=== PATIENT | female | born 1935 | race Caucasian/White ===

== ENCOUNTER 2020-07-31 13:56 | Observation (INO) | payer MEDICARE, OTHER ==
[2020-07-31 14:56] LABS: #Basophils 0.1 thou/uL (0.0-0.2); #Lymphocytes 1.1 thou/uL (1.20-3.40); #Neutrophils 11.4 thou/uL (1.40-6.50); %Basophils 0.7 % (0.0-1.0); %Eosinophils 0.2 % (0.0-10.0); %Lymphocytes 7.8 % (21.0-51.0); %Monocytes 7.2 % (0.0-10.0); %Neutrophils 84.1 % (42.0-75.0); Hemoglobin 14.1 g/dL (12.0-16.0); Mean Corpuscular HGB CONC 31.1 g/dL (32.0-36.0); Mean Corpuscular Hemoglobin 26.8 pg (27.0-31.0); Platelet Count 229 thou/uL (130-400); RBC Distribution Width 13.7 % (11.5-14.5); Red Blood Cell (RBC) Count 5.28 mill/uL (4.20-5.40); White Blood Cell (WBC) Count 13.6 thou/uL (4.8-10.8)
[2020-07-31 15:13] LABS: ALT (SGPT) 17 U/L (8-55); AST (SGOT) 19 U/L (5-34); Albumin 3.6 g/dL (3.4-4.8); Alkaline Phosphatase 90 U/L (40-110); Anion Gap 15 mmol/L (10-20); BUN (Urea Nitrogen) 12 mg/dL (9.8-20.1); Bilirubin, Total 0.5 mg/dL (0.2-1.2); Calc. Creatinine Clearance 0 mL/min (70-130); Calcium 9.2 mg/dL (7.8-10.44); Carbon Dioxide 25 mmol/L (23-31); Chloride 97 mmol/L (98-107); Globulin 2.2 g/dL (2.4-3.5); Glucose 190 mg/dL (83-110); Lipase 42 U/L (8-78); Protein, Total 5.8 g/dL (5.8-8.1); Sodium 134 mmol/L (136-145)
[2020-07-31 15:15] LABS: Potassium 2.9 mmol/L (3.5-5.1)
[2020-07-31] MEDS ORDERED: Iopamidol 370 76% 100 ML VIAL ONE (15:36)
[2020-07-31] MEDS ORDERED: Potassium Chloride 20 MEQ TAB ONE (15:59)
[2020-07-31 16:49] LABS: Bilirubin Negative (Negative); Blood, Urine Small (Negative); Clarity Clear (Clear); Glucose, Urine (Dipstick) Negative (Negative); Ketone, Urine Negative (Negative); Leukocyte Trace (Negative); Nitrite Negative (Negative); Protein, Urine (Dipstick) Negative (Neg-Trace); Specific Gravity, Urine 1.015 (1.005-1.030); Urobilinogen 0.2 mg/dL (Less than 2)
[2020-07-31 16:55] LABS: Bacteria/HPF 2+ HPF (None Seen); RBC/HPF 0-3 HPF (0-3); Renal Epithelial 0-3 HPF (None Seen); WBC/HPF 0-3 HPF (0-3)
[2020-07-31] MEDS ORDERED: Cefepime 2 GM VIAL ONE ×2 (18:10→18:13)
[2020-07-31] MEDS ORDERED: metroNIDAZOLE 500 MG/100 ML BAG ONE (18:10)
[2020-07-31] MEDS ORDERED: Cefepime 1 GM VIAL ONE (18:13)
[2020-07-31] MEDS ORDERED: Sodium Chloride 0.9% 100 ML ONE (18:14)
[2020-07-31 19:46] VITALS: BMI 27.3
[2020-07-31] MEDS ORDERED: Acetaminophen 325 MG TAB PO PRN (20:27)
[2020-07-31] MEDS ORDERED: Ondansetron ODT 4 MG TAB PO PRN (20:27)
[2020-07-31] MEDS ORDERED: Montelukast Sodium 10 mg Tablet PO SCH (21:00)
[2020-07-31] MEDS ORDERED: Enoxaparin Sodium 40 MG/0.4 ML SYRINGE SC SCH (21:00)
[2020-07-31] MEDS: metroNIDAZOLE 500 MG in Premix Bag 1 BAG IVPB SCH (23:12)
[2020-08-01 05:49] LABS: ALT (SGPT) 14 U/L (8-55); AST (SGOT) 15 U/L (5-34); Albumin 2.8 g/dL (3.4-4.8); Alkaline Phosphatase 75 U/L (40-110); Anion Gap 11 mmol/L (10-20); BUN (Urea Nitrogen) 11 mg/dL (9.8-20.1); Bilirubin, Total 0.4 mg/dL (0.2-1.2); Calc. Creatinine Clearance 61 mL/min (70-130); Calcium 8.5 mg/dL (7.8-10.44); Carbon Dioxide 24 mmol/L (23-31); Chloride 104 mmol/L (98-107); Globulin 1.6 g/dL (2.4-3.5); Glucose 98 mg/dL (83-110); Potassium 3.1 mmol/L (3.5-5.1); Protein, Total 4.4 g/dL (5.8-8.1); Sodium 136 mmol/L (136-145)
[2020-08-01] MEDS ORDERED: Levothyroxine Sodium 100 MCG TAB PO SCH (06:00)
[2020-08-01] MEDS: metroNIDAZOLE 500 MG in Premix Bag 1 BAG IVPB SCH (06:19)
[2020-08-01 06:48] LABS: SARS-CoV-2 NAA Rapid Test DETECTED (NotDetected)
[2020-08-01] MEDS ORDERED: Dexamethasone 4 MG TAB PO SCH (08:00)
[2020-08-01] MEDS ORDERED: Lisinopril 20 MG TAB PO SCH (09:00)
[2020-08-01] MEDS ORDERED: Enoxaparin Sodium 40 MG/0.4 ML SYRINGE SC SCH (09:00)
[2020-08-01] MEDS ORDERED: Potassium Chloride 20 MEQ TAB PO SCH (09:00)
[2020-08-01] MEDS ORDERED: Meloxicam 7.5 MG TAB PO SCH (09:00)
[2020-08-01] MEDS ORDERED: Amlodipine 10 MG TAB PO SCH (09:00)
[2020-08-01 12:37] VITALS: BP 139/61; TEMP 97.7
== END 2020-08-01 13:36 | disposition home or self-care (01) ==
LOC: BURERS 13:56 → INTOOBSV 17:15 → BURMED 17:15
PROVIDERS: ADMIT Family Medicine; ATTEND Family Medicine
DX: U07.1 COVID-19 (principal); I49.9 Cardiac arrhythmia, unspecified; E87.6 Hypokalemia; I10 Essential (primary) hypertension; E03.9 Hypothyroidism, unspecified; J45.20 Mild intermittent asthma, uncomplicated; M19.90 Unspecified osteoarthritis, unspecified site; Z79.899 Other long term (current) drug therapy; Z88.0 Allergy status to penicillin; Z88.1 Allergy status to other antibiotic agents; Z66 Do not resuscitate
CPT/HCPCS: 0240U; 36415; 51701; 71046; 74177; 80053; 81003; 81015; 83605; 83690; 84443; 85025; 87040; 94760; 96365; 96372; 96374; G0378; J0692; J1650; J3490; J8540; Q9967

== ENCOUNTER 2020-08-11 18:28 | Emergency (ER) | payer MEDICARE ==
[~2020-08-11 18:28] MED LIST: Iopamidol 370 76% 100 ML VIAL ONE
[2020-08-11 20:21] LABS: ALT (SGPT) 32 U/L (8-55); AST (SGOT) 21 U/L (5-34); Albumin 3.6 g/dL (3.4-4.8); Alkaline Phosphatase 80 U/L (40-110); Anion Gap 17 mmol/L (10-20); BUN (Urea Nitrogen) 12 mg/dL (9.8-20.1); Bilirubin, Total 1.1 mg/dL (0.2-1.2); Calc. Creatinine Clearance 0 mL/min (70-130); Calcium 9.1 mg/dL (7.8-10.44); Carbon Dioxide 23 mmol/L (23-31); Chloride 95 mmol/L (98-107); Globulin 2.5 g/dL (2.4-3.5); Glucose 163 mg/dL (83-110); Lipase 82 U/L (8-78); Potassium 3.6 mmol/L (3.5-5.1); Protein, Total 6.1 g/dL (5.8-8.1); Sodium 131 mmol/L (136-145)
[2020-08-11 20:22] LABS: Bilirubin Negative (Negative); Blood, Urine Trace (Negative); Clarity Clear (Clear); Glucose, Urine (Dipstick) Negative (Negative); Ketone, Urine Negative (Negative); Leukocyte Negative (Negative); Nitrite Negative (Negative); Protein, Urine (Dipstick) Negative (Neg-Trace); Urobilinogen 0.2 mg/dL (Less than 2)
[2020-08-11 20:40] LABS: #Basophils 0.1 thou/uL (0.0-0.2); #Eosinphils 0.1 thou/uL (0.0-0.7); #Lymphocytes 1.4 thou/uL (1.20-3.40); #Neutrophils 16.2 thou/uL (1.40-6.50); %Basophils 0.3 % (0.0-1.0); %Eosinophils 0.3 % (0.0-10.0); %Lymphocytes 7.5 % (21.0-51.0); %Monocytes 5.1 % (0.0-10.0); %Neutrophils 86.8 % (42.0-75.0); Hemoglobin 14.7 g/dL (12.0-16.0); Mean Corpuscular HGB CONC 31.3 g/dL (32.0-36.0); Mean Corpuscular Hemoglobin 26.7 pg (27.0-31.0); Mean Corpuscular Volume 85.3 fL (78.0-98.0); Mean Platelet Volume 6.9 fL (7.4-10.4); Platelet Count 136 thou/uL (130-400); RBC Distribution Width 14.3 % (11.5-14.5); White Blood Cell (WBC) Count 18.7 thou/uL (4.8-10.8)
[2020-08-11 20:48] LABS: Bacteria/HPF None Seen HPF (None Seen); RBC/HPF 0-3 HPF (0-3); Squamous Epithelial 0-3 HPF (0-3); WBC/HPF 0-3 HPF (0-3)
== END 2020-08-11 22:35 | disposition home or self-care (01) ==
LOC: BURERS 18:28
DX: R33.9 Retention of urine, unspecified (principal); D72.829 Elevated white blood cell count, unspecified; K56.41 Fecal impaction; E03.9 Hypothyroidism, unspecified; I10 Essential (primary) hypertension; J45.909 Unspecified asthma, uncomplicated
CPT/HCPCS: 36415; 51702; 71045; 71260; 74177; 80053; 81003; 81015; 83605; 83690; 84484; 85025; 85379; 87040; 93005; 94760; Q9967

== ENCOUNTER 2020-08-13 13:16 | Emergency (ER) | payer MEDICARE | END 2020-08-13 13:43 | disposition home or self-care (01) | LOC: BURERS 13:16 | DX: Z46.6 Encounter for fitting and adjustment of urinary device (principal); E03.9 Hypothyroidism, unspecified; I10 Essential (primary) hypertension; J45.909 Unspecified asthma, uncomplicated | CPT/HCPCS: 99283 ==

== ENCOUNTER 2021-11-11 09:05 | Emergency (ER) | payer MEDICARE ==
[2021-11-11] MEDS ORDERED: predniSONE 20 MG TAB ONE (09:41)
== END 2021-11-11 09:52 | disposition home or self-care (01) ==
LOC: BURERS 09:05
DX: I87.2 Venous insufficiency (chronic) (peripheral) (principal); M19.072 Primary osteoarthritis, left ankle and foot; M19.071 Primary osteoarthritis, right ankle and foot; I10 Essential (primary) hypertension; E03.9 Hypothyroidism, unspecified; J45.909 Unspecified asthma, uncomplicated; Z79.899 Other long term (current) drug therapy
CPT/HCPCS: 99283; J7512

== ENCOUNTER 2022-08-06 14:39 | Emergency (ER) | payer MEDICARE ==
[2022-08-06] MEDS ORDERED: Heparin 10,000 UNITS/ 10 ML VIAL ONE (15:00)
[2022-08-06] MEDS ORDERED: Mag-Al Plus 1200 MG/1200 MG/120 MG/30 ML UDCUP ONE (15:08)
[2022-08-06] MEDS ORDERED: Aspirin Chewable 81 MG TAB ONE (15:08)
[2022-08-06] MEDS ORDERED: Lidocaine Viscous Sol 2% 15 ml UD Cup ONE (15:08)
[2022-08-06 15:17] LABS: #Lymphocytes 0.8 thou/uL (1.20-3.40); #Monocytes 0.8 thou/uL (0.11-0.59); #Neutrophils 10.4 thou/uL (1.40-6.50); %Basophils 0.2 % (0.0-1.0); %Eosinophils 0.1 % (0.0-10.0); %Lymphocytes 6.9 % (21.0-51.0); %Monocytes 6.3 % (0.0-10.0); %Neutrophils 86.6 % (42.0-75.0); Hemoglobin 13.5 g/dL (12.0-16.0); Mean Corpuscular HGB CONC 32.6 g/dL (32.0-36.0); Mean Corpuscular Hemoglobin 28.8 pg (27.0-31.0); Mean Corpuscular Volume 88.2 fl (78.0-98.0); Mean Platelet Volume 8.1 fL (7.4-10.4); Platelet Count 179 10x3/uL (130-400); RBC Distribution Width 12.3 % (11.5-14.5)
[2022-08-06 15:26] LABS: INR-International Normal Ratio 1.1; Prothrombin Time 14.3 sec (12.0-14.7)
[2022-08-06 15:27] LABS: PTT 30.1 sec (22.9-36.1)
[2022-08-06 15:36] LABS: ALT (SGPT) 30 U/L (8-55); AST (SGOT) 123 U/L (5-34); Albumin 4.1 g/dL (3.4-4.8); Alkaline Phosphatase 98 U/L (40-110); Anion Gap 15 mmol/L (10-20); BUN (Urea Nitrogen) 12 mg/dL (9.8-20.1); Bilirubin, Total 0.6 mg/dL (0.2-1.2); Calc. Creatinine Clearance 0 mL/min (70-130); Calcium 10.8 mg/dL (7.8-10.44); Carbon Dioxide 23 mmol/L (23-31); Chloride 98 mmol/L (98-107); Estimated GFR 77; Globulin 2.6 g/dL (2.4-3.5); Glucose 156 mg/dL (83-110); Lipase 26 U/L (8-78); Protein, Total 6.7 g/dL (5.8-8.1); Sodium 132 mmol/L (136-145)
[2022-08-06] MEDS ORDERED: Heparin 25,000 units/D5W 500 ML ONE (16:22)
[2022-08-06] MEDS ORDERED: Metoprolol Tartrate 5 MG/5 ML VIAL ONE (16:22)
[2022-08-06] MEDS ORDERED: Heparin 10,000 UNITS/1 ML VIAL ONE (16:22)
[2022-08-06 16:35] LABS: CKMB 109.4 ng/mL (0-6.6)
== END 2022-08-06 16:00 | disposition short-term general hospital (02) ==
LOC: BURERS 14:39
DX: I21.9 Acute myocardial infarction, unspecified (principal); D72.829 Elevated white blood cell count, unspecified; E03.9 Hypothyroidism, unspecified; I10 Essential (primary) hypertension; Z79.899 Other long term (current) drug therapy
CPT/HCPCS: 36415; 71045; 80053; 82553; 83690; 84484; 85025; 85610; 85730; 93005; 94760; 96374; 96375; J1643; J1644

== ENCOUNTER 2022-08-22 09:56 | Inpatient (IN) | payer MEDICARE ==
[2022-08-22] MEDS ORDERED: Acetaminophen 325 MG TAB PO PRN (12:05)
[2022-08-22] MEDS ORDERED: Ondansetron ODT 4 MG TAB PO PRN (12:24)
[2022-08-22] MEDS: ALPRAZolam 0.5 MG TAB PO SCH (20:57)
[2022-08-22] MEDS: Atorvastatin Calcium 40 MG TAB PO SCH (20:58)
[2022-08-22] MEDS: Ivabradine 5 MG TAB PO SCH (20:59)
[2022-08-22] MEDS ORDERED: IVABRADINE 5 MG PO SCH (21:00)
[2022-08-22] MEDS ORDERED: ALPRAZOLAM 0.25 MG PO SCH (21:00)
[2022-08-23] MEDS: Levothyroxine Sodium 100 MCG TAB PO SCH (05:20)
[2022-08-23] MEDS: ALPRAZolam 0.5 MG TAB PO SCH ×2 (08:40→20:53)
[2022-08-23] MEDS: Ivabradine 5 MG TAB PO SCH ×2 (08:40→20:53)
[2022-08-23] MEDS: Lisinopril 5 MG TAB PO SCH (08:41)
[2022-08-23] MEDS: Aspirin 325 mg Enteric Coated Tablet PO SCH (08:42)
[2022-08-23] MEDS: Clopidogrel Bisulfate 75 MG TAB PO SCH (08:42)
[2022-08-23] MEDS ORDERED: Non-Formulary Item 1 EACH (Levothyroxine Sodium [Levothyroxine] 100 MCG Capsule) PO SCH (09:00)
[2022-08-23] MEDS ORDERED: Non-Formulary Item 1 EACH (Lisinopril [Zestril] 2.5 MG Tab) PO SCH (09:00)
[2022-08-23] MEDS: Atorvastatin Calcium 40 MG TAB PO SCH (20:54)
[2022-08-24] MEDS: Levothyroxine Sodium 100 MCG TAB PO SCH (05:32)
[2022-08-24] MEDS: Lisinopril 5 MG TAB PO SCH (08:20)
[2022-08-24] MEDS: Ivabradine 5 MG TAB PO SCH ×2 (08:20→21:34)
[2022-08-24] MEDS: Clopidogrel Bisulfate 75 MG TAB PO SCH (08:23)
[2022-08-24] MEDS: Aspirin 325 mg Enteric Coated Tablet PO SCH (08:23)
[2022-08-24] MEDS: ALPRAZolam 0.5 MG TAB PO SCH ×2 (08:23→21:34)
[2022-08-24] MEDS: Polyethylene Glycol 3350 17 GM Packet PO PRN (08:31)
[2022-08-24] MEDS ORDERED: Famotidine 20 MG TAB PO SCH (09:45)
[2022-08-24] MEDS: Atorvastatin Calcium 40 MG TAB PO SCH (21:34)
[2022-08-24] MEDS ORDERED: Triple Antibiotic Oint 1 GM Packet ONE (21:59)
[2022-08-25] MEDS: Levothyroxine Sodium 100 MCG TAB PO SCH (05:50)
[2022-08-25] MEDS: Famotidine 20 MG TAB PO SCH (08:59)
[2022-08-25] MEDS: Lisinopril 5 MG TAB PO SCH (08:59)
[2022-08-25] MEDS: Ivabradine 5 MG TAB PO SCH ×2 (09:01→21:03)
[2022-08-25] MEDS: Clopidogrel Bisulfate 75 MG TAB PO SCH (09:01)
[2022-08-25] MEDS: Aspirin 325 mg Enteric Coated Tablet PO SCH (09:01)
[2022-08-25] MEDS: ALPRAZolam 0.5 MG TAB PO SCH ×2 (09:04→21:04)
[2022-08-25] MEDS: Atorvastatin Calcium 40 MG TAB PO SCH (21:03)
[2022-08-25] MEDS: Nystatin Powder 15 GM BOT TOP PRN (21:15)
[2022-08-26] MEDS: Levothyroxine Sodium 100 MCG TAB PO SCH (06:03)
[2022-08-26] MEDS: Ivabradine 5 MG TAB PO SCH ×2 (08:49→21:30)
[2022-08-26] MEDS: Famotidine 20 MG TAB PO SCH (08:49)
[2022-08-26] MEDS: Aspirin 325 mg Enteric Coated Tablet PO SCH (08:49)
[2022-08-26] MEDS: Lisinopril 5 MG TAB PO SCH (08:49)
[2022-08-26] MEDS: Polyethylene Glycol 3350 17 GM Packet PO PRN (08:49)
[2022-08-26] MEDS: ALPRAZolam 0.5 MG TAB PO SCH ×2 (08:51→21:30)
[2022-08-26] MEDS: Clopidogrel Bisulfate 75 MG TAB PO SCH (08:51)
[2022-08-26] MEDS: Atorvastatin Calcium 40 MG TAB PO SCH (21:30)
[2022-08-26] MEDS: Nystatin Powder 15 GM BOT TOP PRN (21:31)
[2022-08-27] MEDS: Levothyroxine Sodium 100 MCG TAB PO SCH (06:20)
[2022-08-27] MEDS: ALPRAZolam 0.5 MG TAB PO SCH ×2 (10:27→21:55)
[2022-08-27] MEDS: Aspirin 325 mg Enteric Coated Tablet PO SCH (10:28)
[2022-08-27] MEDS: Clopidogrel Bisulfate 75 MG TAB PO SCH (10:28)
[2022-08-27] MEDS: Lisinopril 5 MG TAB PO SCH (10:28)
[2022-08-27] MEDS: Famotidine 20 MG TAB PO SCH (10:28)
[2022-08-27] MEDS: Ivabradine 5 MG TAB PO SCH ×2 (10:30→21:56)
[2022-08-27] MEDS: Atorvastatin Calcium 40 MG TAB PO SCH (21:56)
[2022-08-28] MEDS: Levothyroxine Sodium 100 MCG TAB PO SCH (05:25)
[2022-08-28] MEDS: ALPRAZolam 0.5 MG TAB PO SCH ×2 (09:22→21:29)
[2022-08-28] MEDS: Ivabradine 5 MG TAB PO SCH ×2 (09:23→21:28)
[2022-08-28] MEDS: Aspirin 325 mg Enteric Coated Tablet PO SCH (09:23)
[2022-08-28] MEDS: Lisinopril 5 MG TAB PO SCH (09:23)
[2022-08-28] MEDS: Clopidogrel Bisulfate 75 MG TAB PO SCH (09:23)
[2022-08-28] MEDS: Famotidine 20 MG TAB PO SCH (09:23)
[2022-08-28] MEDS: Atorvastatin Calcium 40 MG TAB PO SCH (21:28)
[2022-08-28] MEDS: Montelukast Sodium 10 mg Tablet PO PRN (21:28)
[2022-08-29 05:06] LABS: #Basophils 0.1 thou/uL (0.0-0.2); #Eosinphils 0.2 thou/uL (0.0-0.7); #Lymphocytes 1.1 thou/uL (1.20-3.40); #Monocytes 0.4 thou/uL (0.11-0.59); #Neutrophils 3.6 thou/uL (1.40-6.50); %Eosinophils 2.9 % (0.0-10.0); %Monocytes 8.1 % (0.0-10.0); Hemoglobin 10.5 g/dL (12.0-16.0); Mean Corpuscular HGB CONC 32.3 g/dL (32.0-36.0); Mean Corpuscular Hemoglobin 28.2 pg (27.0-31.0); Mean Corpuscular Volume 87.1 fl (78.0-98.0); Mean Platelet Volume 7.1 fL (7.4-10.4); Platelet Count 163 10x3/uL (130-400); RBC Distribution Width 12.7 % (11.5-14.5); Red Blood Cell (RBC) Count 3.72 mill/uL (4.20-5.40); White Blood Cell (WBC) Count 5.3 10x3/uL (4.8-10.8)
[2022-08-29 05:17] LABS: Anion Gap 9 mmol/L (10-20); BUN (Urea Nitrogen) 12 mg/dL (9.8-20.1); Calc. Creatinine Clearance 51 mL/min (70-130); Calcium 9.7 mg/dL (7.8-10.44); Carbon Dioxide 26 mmol/L (23-31); Chloride 104 mmol/L (98-107); Estimated GFR 84; Glucose 112 mg/dL (83-110); Potassium 4.1 mmol/L (3.5-5.1); Sodium 135 mmol/L (136-145)
[2022-08-29] MEDS: Levothyroxine Sodium 100 MCG TAB PO SCH (06:15)
[2022-08-29] MEDS: Lisinopril 5 MG TAB PO SCH (08:56)
[2022-08-29] MEDS: Famotidine 20 MG TAB PO SCH (08:57)
[2022-08-29] MEDS: Aspirin 325 mg Enteric Coated Tablet PO SCH (08:57)
[2022-08-29] MEDS: Clopidogrel Bisulfate 75 MG TAB PO SCH (08:57)
[2022-08-29] MEDS: Ivabradine 5 MG TAB PO SCH ×2 (08:57→21:37)
[2022-08-29] MEDS: ALPRAZolam 0.5 MG TAB PO SCH ×2 (08:58→21:36)
[2022-08-29 12:43] VITALS: BMI 23.7
[2022-08-29] MEDS: Montelukast Sodium 10 mg Tablet PO PRN (21:37)
[2022-08-29] MEDS: Atorvastatin Calcium 40 MG TAB PO SCH (21:37)
[2022-08-30] MEDS: Levothyroxine Sodium 100 MCG TAB PO SCH (05:53)
[2022-08-30] MEDS: ALPRAZolam 0.5 MG TAB PO SCH ×2 (08:58→20:26)
[2022-08-30] MEDS: Ivabradine 5 MG TAB PO SCH ×2 (08:59→20:23)
[2022-08-30] MEDS: Lisinopril 5 MG TAB PO SCH (08:59)
[2022-08-30] MEDS: Aspirin 325 mg Enteric Coated Tablet PO SCH (08:59)
[2022-08-30] MEDS: Famotidine 20 MG TAB PO SCH (08:59)
[2022-08-30] MEDS: Clopidogrel Bisulfate 75 MG TAB PO SCH (09:00)
[2022-08-30] MEDS: Polyethylene Glycol 3350 17 GM Packet PO PRN (09:03)
[2022-08-30] MEDS: Atorvastatin Calcium 40 MG TAB PO SCH (20:23)
[2022-08-30] MEDS: Montelukast Sodium 10 mg Tablet PO PRN (20:27)
[2022-08-31] MEDS: Levothyroxine Sodium 100 MCG TAB PO SCH (05:13)
[2022-08-31] MEDS: Aspirin 325 mg Enteric Coated Tablet PO SCH (08:20)
[2022-08-31] MEDS: Ivabradine 5 MG TAB PO SCH ×2 (08:20→20:13)
[2022-08-31] MEDS: Polyethylene Glycol 3350 17 GM Packet PO PRN (08:20)
[2022-08-31] MEDS: Famotidine 20 MG TAB PO SCH (08:21)
[2022-08-31] MEDS: Lisinopril 5 MG TAB PO SCH (08:21)
[2022-08-31] MEDS: ALPRAZolam 0.5 MG TAB PO SCH ×2 (08:22→20:11)
[2022-08-31] MEDS: Clopidogrel Bisulfate 75 MG TAB PO SCH (08:22)
[2022-08-31] MEDS: Atorvastatin Calcium 40 MG TAB PO SCH (20:13)
[2022-08-31] MEDS: Montelukast Sodium 10 mg Tablet PO PRN (20:13)
[2022-09-01] MEDS: Levothyroxine Sodium 100 MCG TAB PO SCH (05:08)
[2022-09-01] MEDS: ALPRAZolam 0.5 MG TAB PO SCH ×2 (09:20→20:45)
[2022-09-01] MEDS: Aspirin 325 mg Enteric Coated Tablet PO SCH (09:21)
[2022-09-01] MEDS: Ivabradine 5 MG TAB PO SCH ×2 (09:21→20:46)
[2022-09-01] MEDS: Clopidogrel Bisulfate 75 MG TAB PO SCH (09:21)
[2022-09-01] MEDS: Lisinopril 5 MG TAB PO SCH (09:21)
[2022-09-01] MEDS: Famotidine 20 MG TAB PO SCH (09:21)
[2022-09-01] MEDS: Polyethylene Glycol 3350 17 GM Packet PO PRN (09:32)
[2022-09-01] MEDS: Atorvastatin Calcium 40 MG TAB PO SCH (20:46)
[2022-09-01] MEDS: Montelukast Sodium 10 mg Tablet PO PRN (20:50)
[2022-09-02] MEDS: Levothyroxine Sodium 100 MCG TAB PO SCH (05:57)
[2022-09-02] MEDS: Lisinopril 5 MG TAB PO SCH (09:27)
[2022-09-02] MEDS: ALPRAZolam 0.5 MG TAB PO SCH ×2 (09:27→20:25)
[2022-09-02] MEDS: Clopidogrel Bisulfate 75 MG TAB PO SCH (09:28)
[2022-09-02] MEDS: Aspirin 325 mg Enteric Coated Tablet PO SCH (09:28)
[2022-09-02] MEDS: Famotidine 20 MG TAB PO SCH (09:28)
[2022-09-02] MEDS: Ivabradine 5 MG TAB PO SCH ×2 (09:28→20:25)
[2022-09-02] MEDS: Polyethylene Glycol 3350 17 GM Packet PO PRN (09:29)
[2022-09-02] MEDS: Montelukast Sodium 10 mg Tablet PO PRN (20:25)
[2022-09-02] MEDS: Atorvastatin Calcium 40 MG TAB PO SCH (20:25)
[2022-09-03] MEDS: Levothyroxine Sodium 100 MCG TAB PO SCH (05:48)
[2022-09-03] MEDS: Ivabradine 5 MG TAB PO SCH (08:50)
[2022-09-03] MEDS: Famotidine 20 MG TAB PO SCH (08:50)
[2022-09-03] MEDS: Clopidogrel Bisulfate 75 MG TAB PO SCH (08:50)
[2022-09-03] MEDS: Lisinopril 5 MG TAB PO SCH (08:51)
[2022-09-03] MEDS: ALPRAZolam 0.5 MG TAB PO SCH (08:52)
[2022-09-03] MEDS: Aspirin 325 mg Enteric Coated Tablet PO SCH (08:52)
[2022-09-03 11:29] VITALS: BP 135/74; TEMP 97.8
== END 2022-09-03 11:25 | DRG 947 ==
LOC: BURMED 10:50
PROVIDERS: ADMIT Family Medicine; ATTEND Family Medicine
DX: R53.1 Weakness (principal); I21.3 ST elevation (STEMI) myocardial infarction of unspecified site; I50.42 Chronic combined systolic (congestive) and diastolic (congestive) heart failure; E87.1 Hypo-osmolality and hyponatremia; I25.5 Ischemic cardiomyopathy; I11.0 Hypertensive heart disease with heart failure; Z66 Do not resuscitate; E78.5 Hyperlipidemia, unspecified; E03.9 Hypothyroidism, unspecified; J45.909 Unspecified asthma, uncomplicated; R33.9 Retention of urine, unspecified; G25.2 Other specified forms of tremor; I25.10 Atherosclerotic heart disease of native coronary artery without angina pectoris; D64.9 Anemia, unspecified; Z79.82 Long term (current) use of aspirin; Z79.02 Long term (current) use of antithrombotics/antiplatelets; Z79.899 Other long term (current) drug therapy; Z79.890 Hormone replacement therapy; Z88.1 Allergy status to other antibiotic agents; Z82.49 Family history of ischemic heart disease and other diseases of the circulatory system
CPT/HCPCS: 36415; 80048; 85025